=== PATIENT | male | born 1985 | race African-American/Black ===

== ENCOUNTER 2016-08-03 13:03 | Emergency (ER) | payer OTHER ==
[2016-08-03 13:57] VITALS: BP 119/71
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
--- NOTE | 2016-08-03 15:14 | RAD ---
INDICATION: RIGHT elbow redness and swelling following training. Decreased range of motion. COMPARISON: None. TECHNIQUE: AP, lateral, and oblique views RIGHT elbow. REPORT: Negative for fat pad displacement to indicate effusion. Negative for fracture or malalignment. Soft tissue swelling most marked superficial to the medial epicondyle. IMPRESSION: Extensive medial soft tissue swelling. Correlate with clinical presentation for potential cellulitis or medial epicondylitis.
== END 2016-08-03 15:36 | disposition home or self-care (01) ==
LOC: UCCORT 13:03
DX: M10.9 Gout, unspecified (principal); F17.210 Nicotine dependence, cigarettes, uncomplicated; Z83.49 Family history of other endocrine, nutritional and metabolic diseases
CPT/HCPCS: 99202; G0463

== ENCOUNTER 2016-08-09 11:13 | Emergency (ER) | payer OTHER ==
[2016-08-09 12:22] VITALS: BP 109/63
--- NOTE | 2016-08-09 12:39 | UC ---
Upper Extremity HPI - HPI Summary HPI Summary: 31 yo M is here for re-evaluation of right arm infection/gout. Wants to go back to full duty work. Was seen in UC on 08/03/16 and diagnosed gout/cellulitis and was prescribed cephalexin and indocin and prednisone. Pt has been taking the meds without problem and states the redness and swelling have improved. Pt denies IV drug use. Pt states no fever at home, noted with 100.1 in UC, pulse 121. Pt states the wound did drain fluid on 08/06/16 and pt covered it with gauze and it stopped draining. 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 Pt with hx MRSA - History of Current Complaint Chief Complaint: Jean Claude Stated Complaint: RE CHECK ARM INFECTION Time Seen by Provider: 08/09/16 12:19 Hx Obtained From: Patient Onset/Duration: Gradual Onset, Lasting Days, Still Present Severity Initially: Severe Severity Currently: None Pain Intensity: 0 Pain Scale Used: 0-10 Numeric Location Of Pain: Is Discrete @ - right antecubital area Aggravating Factor(s): Nothing Alleviating Factor(s): Other: - prescription meds Associated Signs And Symptoms: Positive: Swelling, Redness. Negative: Fever, Numbness/Tingling Related History: Occupational Injury, Dominant Hand Right - Risk Factors Non-Orthopedic Risk Factor: Negative DVT Risk Factors: Family Hx of Clotting Disorder - grandmother with DM and cellulitis and clots Septic Arthritis Risk Factor: Negative - Allergies/Home Medications Allergies/Adverse Reactions: Allergies Allergy/AdvReac Type Severity Reaction Status Date / Time No Known Allergies Allergy Verified 08/09/16 12:03 Home Medications: Home Medications Ibuprofen TAB* [Motrin TAB* 600 MG] 600 mg PO ONCE PRN 08/09/16 [History Confirmed 08/09/16] PMH/Surg Hx/FS Hx/Imm Hx Previously Healthy: Yes - Surgical History Surgical History: None - Family History Known Family History: Positive: Diabetes, Blood Disorder - blood clot in GM - Social History Occupation: Employed Full-time Lives: With Family - grandmother Alcohol Use: None Substance Use Type: None Smoking Status (MU): Heavy Every Day Tobacco Smoker Type: Cigarettes Amount Used/How Often: 1 PPD Have You Smoked in the Last Year: Yes Household Exposure Type: Cigarettes Review of Systems Constitutional: Negative Skin: Other - redness, swelling right antecubital Eyes: Negative ENT: Negative Respiratory: Negative Cardiovascular: Negative Gastrointestinal: Negative Genitourinary: Negative Motor: Negative Neurovascular: Negative Musculoskeletal: Negative Neurological: Negative Psychological: Negative All Other Systems Reviewed And Are Negative: Yes Physical Exam Triage Information Reviewed: Yes Appearance: Well-Appearing, No Pain Distress, Well-Nourished Vital Signs: Initial Vital Signs Temp 100.1 F 08/09/16 12:04 Pulse 121 08/09/16 12:04 Resp 16 08/09/16 12:04 BP 109/63 08/09/16 12:04 Pulse Ox 96 08/09/16 12:04 Temp 100.1 noted, pulse 121 noted. Vital Signs Reviewed: Yes Eyes: Positive: Conjunctiva Clear ENT: Positive: Normal ENT inspection Respiratory: Positive: Lungs clear, Normal breath sounds, No respiratory distress Cardiovascular: Positive: RRR, No Murmur, Pulses Normal, Brisk Capillary Refill Musculoskeletal: Positive: Strength Intact, ROM Intact, Other: - mass right antecubital space 10cm x 7 cm with central red, excoriated area that looks like pus that is 3 cm. Neurological: Positive: Alert, Muscle Tone Normal Psychological Exam: Normal Skin: Positive: significant lesion(s) - right antecubital area as described above. Left antecubital area has 0.5cm area redness, induration which pt cannot explain how it is inflamed Upper Extremity Course/Dx - Course Course Of Treatment: discussed with pt. With vital signs show mild temp elevation and pulse increase and appearance of swelling in right antecubital space, concern for clot or abscess. Advised pt to seek further evaluation in ED with advanced imaging. I will give pt a work release for today, to go to ED for evaluation. With fam hx of clots, and personal hx of MRSA needs further eval. Pt continues to deny IV drug use. Trauma to the arm could be consistent with causing a DVT, so injury at work is a plausible cause for DVT that could become superinfected and become an abscess. - Differential Dx/Diagnosis Differential Diagnosis/HQI/PQRI: Other - abscess, DVT, IV drug use Provider Diagnoses: cellulitis vs abscess right arm. tobacco abuse disorder Discharge - Discharge Plan Condition: Stable Disposition: AGAINST MEDICAL ADVICE Discharge Disposition Comment: pt will go by private car to [facility] ED for higher level of care Forms: *Work Release Referrals: Non Staff,Doctor [Primary Care Provider] -
== END 2016-08-09 13:18 | disposition left against medical advice (07) ==
LOC: UCCORT 11:13
DX: L08.9 Local infection of the skin and subcutaneous tissue, unspecified (principal); F17.210 Nicotine dependence, cigarettes, uncomplicated; Z86.14 Personal history of Methicillin resistant Staphylococcus aureus infection
CPT/HCPCS: 99212; G0463

== ENCOUNTER 2016-08-11 10:48 | Emergency (ER) | payer OTHER ==
[2016-08-11 12:16] VITALS: BP 139/75
--- NOTE | 2016-08-11 12:52 | UC ---
Skin Complaint HPI - HPI Summary HPI Summary: 31 yo male presents with request for work note States arm is giving him no problems No longer febrile - History of Current Complaint Chief Complaint: UCGeneralIllness Time Seen by Provider: 08/11/16 12:15 Stated Complaint: RTW NOTE/CLEARANCE Hx Obtained From: Patient Onset/Duration: Gradual Onset, Lasting Weeks Timing: Constant Onset Severity: Severe Current Severity: None Pain Intensity: 0 Pain Scale Used: 0-10 Numeric Location: Other - right antecubital fossa Character: Swelling - resolved, Redness - resolved, Painful - resolved Aggravating: Nothing Alleviating: Nothing Associated Signs & Symptoms: Positive: Negative. Negative: Tenderness - Allergy/Home Medications Allergies/Adverse Reactions: Allergies Allergy/AdvReac Type Severity Reaction Status Date / Time No Known Allergies Allergy Verified 08/11/16 12:16 Review of Systems Constitutional: Negative Skin: Negative Eyes: Negative ENT: Negative Respiratory: Negative Cardiovascular: Negative Gastrointestinal: Negative Genitourinary: Negative Motor: Negative Neurovascular: Negative Musculoskeletal: Negative Neurological: Negative Psychological: Negative All Other Systems Reviewed And Are Negative: Yes PMH/Surg Hx/FS Hx/Imm Hx Previously Healthy: Yes - hx MRSA - Surgical History Surgical History: None - Family History Known Family History: Positive: Unknown, Diabetes, Blood Disorder - blood clot in GM - Social History Alcohol Use: None Substance Use Type: None Smoking Status (MU): Heavy Every Day Tobacco Smoker Type: Cigarettes Amount Used/How Often: 1 PPD Have You Smoked in the Last Year: Yes Household Exposure Type: Cigarettes Physical Exam Triage Information Reviewed: Yes Appearance: Well-Appearing - non toxic/alert/reading, No Pain Distress, Well- Nourished Vital Signs: Initial Vital Signs Temp 99.4 F 08/11/16 12:14 Pulse 105 08/11/16 12:14 Resp 14 08/11/16 12:14 BP 139/75 08/11/16 12:14 Pulse Ox 99 08/11/16 12:14 Vital Signs Reviewed: Yes Eyes: Positive: Conjunctiva Clear ENT: Positive: Hearing grossly normal. Negative: Nasal congestion, Nasal drainage, Trismus, Muffled/hoarse voice Neck: Positive: Supple, Nontender Respiratory: Positive: Lungs clear, Normal breath sounds, No respiratory distress, No accessory muscle use Cardiovascular: Positive: RRR, No Murmur, Pulses Normal. Negative: Tachycardia Abdominal Exam: Normal Neurological Exam: Normal Neurological: Positive: Alert. Negative: Fatigued Psychological Exam: Normal Skin Exam: Other - right anticubital fossa-healing area where an abscess had drained, no pus, no fluctuance small area of induration. range of motion is full , no erthyema Course/Dx - Diagnoses Provider Diagnoses: resolving abscess right antecubital fossa Discharge - Discharge Plan Condition: Stable Disposition: HOME Prescriptions: Sulfamethox/Trimethoprim DS* [Bactrim DS 800/160 TAB*] 1 tab PO BID #14 tab Forms: *Work Release Referrals: Non Staff,Doctor [Primary Care Provider] - Additional Instructions: Your infection is markedly improved You may return to work I suggest another weeks worth of antibiotics Because you have had MRSA in the past I would like to change antibiotic I don't think this was due to gout...I think it was all due to infection
== END 2016-08-11 12:53 | disposition home or self-care (01) ==
LOC: UCCORT 10:48
DX: L02.413 Cutaneous abscess of right upper limb (principal); F17.210 Nicotine dependence, cigarettes, uncomplicated
CPT/HCPCS: 99211; G0463

== ENCOUNTER 2017-11-14 15:54 | Emergency (ER) | payer SELFPAY ==
--- NOTE | 2017-11-14 16:57 | UC ---
Lower Extremity/Ankle HPI - HPI Summary HPI Summary: 32 y/o female presents to the urgent care c/o RT second toe pain s/p dropping a car door on his Rt foot yesterday. Pt states he went home to rest, elevated his foot and applied ice. However this morning he went to work and pain got worse. Pain is 7/10 sharp w/ walking. He took 2 tabs PO of ibuprofen to alleviate symptoms this morning. His Rt toe is red and swollen. Pt denies numbness and tingling sensation over his toe, SOB, chest pain, calf pain, abdominal pain, N/V/D. - History of Current Complaint Chief Complaint: UCLowerExtremity Stated Complaint: R TOE INJURY WC Time Seen by Provider: 11/14/17 16:54 Hx Obtained From: Patient Onset/Duration: Sudden Onset, Lasting Days - 1 day, Still Present, Worse Since - today Severity Initially: Moderate Severity Currently: Moderate Pain Intensity: 7 Pain Scale Used: 0-10 Numeric Aggravating Factor(s): Ambulation Alleviating Factor(s): Rest, Ice, OTC Meds Able to Bear Weight: Yes - Risk Factors Gout Risk Factors: Negative DVT Risk Factors: Negative Septic Arthritis Risk Factor: Negative - Allergies/Home Medications Allergies/Adverse Reactions: Allergies Allergy/AdvReac Type Severity Reaction Status Date / Time No Known Allergies Allergy Verified 11/14/17 16:09 PMH/Surg Hx/FS Hx/Imm Hx Previously Healthy: Yes - Pt denies PMHX - Surgical History Surgical History: None - Family History Known Family History: Positive: Diabetes, Blood Disorder - blood clot in GM - Social History Occupation: Employed Full-time Lives: With Family Alcohol Use: None Substance Use Type: Marijuana Smoking Status (MU): Former Smoker Type: Cigarettes Amount Used/How Often: 1 PPD Have You Smoked in the Last Year: Yes Household Exposure Type: Cigarettes Review of Systems Constitutional: Negative Skin: Bruising - 2nd Rt toe w/ swelling Eyes: Negative ENT: Negative Respiratory: Negative Cardiovascular: Negative Gastrointestinal: Negative Genitourinary: Negative Motor: Negative Neurovascular: Negative Musculoskeletal: Decreased ROM - RT second toe s/p injury, Other: - RT second toe pain s/p injury Neurological: Negative Psychological: Negative Is Patient Immunocompromised?: No All Other Systems Reviewed And Are Negative: Yes Physical Exam - Summary Physical Exam Summary: Vital Signs Reviewed: Yes General : well developed, well nourished male w/o any apparent distress Eyes: Positive: Conjunctiva Clear - PERRLA, EOMI ENT: Positive: Normal ENT inspection, Hearing grossly normal, Pharynx normal, TMs normal Neck: Positive: Supple, Nontender, No Lymphadenopathy Respiratory: Positive: Chest non-tender, Lungs clear, Normal breath sounds, No respiratory distress Cardiovascular: Positive: RRR, No Murmur, Pulses Normal Abdomen Description: Positive: Nontender, No Organomegaly, Soft. Negative: CVA Tenderness (R), CVA Tenderness (L) Bowel Sounds: Positive: Present Musculoskeletal: Positive: Strength Intact, ROM Intact, No Edema, RT Foot/Toes: Pt is able to bear weight but ambulate with mild limping. RT foot :mild brusing and ecchymosis, over the RT second DIPJ w/ mild swelling and tenderness to palaption, No erythema, lesions, ulcers or break in skin integrity. The R foot is without obvious asymmetry or deformity when compared to the L foot. No bony step-off, no tenderness of hindfoot, metatarsals. Decrease plantar/ dorsiflexion due to pain.. Distal motor and neurovascular status are intact.Decreae ROM of second toe due to pain. Neurological Exam: Normal Psychological Exam: Normal Skin Exam: Normal Triage Information Reviewed: Yes Vital Signs: Initial Vital Signs Temp 98.3 F 11/14/17 16:05 Pulse 83 11/14/17 16:05 Resp 18 11/14/17 16:05 BP 119/60 11/14/17 16:05 Pulse Ox 99 11/14/17 16:05 Lower Extremity Course/Dx - Course Course Of Treatment: 32 y/o female presents to the urgent care c/o RT second toe pain s/p dropping a car door on his Rt foot yesterday. Pt states he went home to rest, elevated his foot and applied ice. However this morning he went to work and pain got worse. Pain is 7/10 sharp w/ walking. He took 2 tabs PO of ibuprofen to alleviate symptoms this morning. His Rt toe is red and swollen. Pt denies numbness and tingling sensation over his toe, SOB, chest pain, calf pain, abdominal pain, N/V/D.Hx obtained. RT 2nd toe X-ray ordered, Impression: No evidence of fracuture. Probably toe sprain s/p contusion. Pt's foot immobilized with pio-bandage and given a post-op shoe to avoid flexion. Advised RICE, and Rx Ibuprofen PO for pain, If not improvement of symptoms to f/u with Orthopedic DR referral for further evaluation and treatment. Pt understood and agreed with D/C instructions - Differential Dx/Diagnosis Differential Diagnosis/HQI/PQRI: Contusion, Fracture (Closed), Subungual Hematoma, Sprain, Strain, Tendonitis Provider Diagnoses: 1- RT 2nd toe pain s/p injury. 2- RT 2nd toe contusion Discharge - Sign-Out/Discharge Documenting (check all that apply): Discharge - Discharge Plan Condition: Stable Disposition: HOME Prescriptions: Ibuprofen TAB* [Motrin TAB* 800 MG] 800 mg PO Q6H PRN #20 tab PRN Reason: Pain Patient Education Materials: Foot Contusion (ED), Foot Sprain (ED) Forms: *Work Release Referrals: [facility] [place] [facility] [Outside] - 1 Week Nicole Venegas MD [Medical Doctor] - 1 Week Additional Instructions: 1-Please take medications as directed to alleviate pain and swelling. 2-Please apply ice, keep your foot immobilized with the Pio bandage and avoid flexion w/ the post-up shoe. Avoid strenuous exercise or standing for long periods of time 3- Please f/u with your PCP mof Orthopedic Dr in 1 week if not improvement of symptoms for further evaluation and treatment. - Billing Disposition and Condition Condition: STABLE Disposition: HOME
[2017-11-14] MEDS ORDERED: Ibuprofen TAB* 400 MG PO ONE (17:21)
--- NOTE | 2017-11-14 18:01 | RAD ---
INDICATION: Right second toe injury. TECHNIQUE: 3 views of the right second toe were obtained. FINDINGS: The bones are in normal alignment. No fracture is seen. Joint spaces appear maintained. IMPRESSION: NO EVIDENCE FOR FRACTURE.
[2017-11-14 18:33] VITALS: BP 124/71
== END 2017-11-14 18:25 | disposition home or self-care (01) ==
LOC: UCEAST 15:54
DX: S90.121A Contusion of right lesser toe(s) without damage to nail, initial encounter (principal); W20.8XXA Other cause of strike by thrown, projected or falling object, initial encounter; Y93.89 Activity, other specified; Y92.89 Other specified places as the place of occurrence of the external cause; Y99.0 Civilian activity done for income or pay; Z87.891 Personal history of nicotine dependence
CPT/HCPCS: 99213; A9270-GY; G0463

== ENCOUNTER 2017-12-11 11:41 | Emergency (ER) | payer OTHER ==
[2017-12-11 11:53] VITALS: BP 134/74
[2017-12-11] MEDS ORDERED: Acetaminophen TAB* 325 MG PO ONE (12:09)
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
--- NOTE | 2017-12-11 13:27 | RAD ---
HISTORY: Head injury with loss of consciousness, headache COMPARISONS: None TECHNIQUE: Multiple contiguous axial CT scans were obtained of the head without intravenous contrast. Left middle cranial fossa is incompletely included within the [id number] the current examination. FINDINGS: HEMORRHAGE/INFARCT: There is no hemorrhage or acute infarct. MASSES/SHIFT: There is no mass or shift. EXTRA-AXIAL SPACES: There are no extra-axial fluid collections. SULCI AND VENTRICLES: The sulci and ventricles are normal in size and position for the patient's stated age. CEREBRUM: There are no focal parenchymal abnormalities. BRAINSTEM: There are no focal parenchymal abnormalities. CEREBELLUM: There are no focal parenchymal abnormalities. VESSELS: The vessels are grossly normal. PARANASAL SINUSES: The paranasal sinuses are clear. ORBITS: The orbits are unremarkable. BONES AND SOFT TISSUE: No bone or soft tissue abnormalities are noted. OTHER: None IMPRESSION: NO ACUTE INTRACRANIAL PATHOLOGY.
== END 2017-12-11 13:43 | disposition home or self-care (01) ==
LOC: UCEAST 11:41
DX: S09.90XA Unspecified injury of head, initial encounter (principal); S00.12XA Contusion of left eyelid and periocular area, initial encounter; W22.8XXA Striking against or struck by other objects, initial encounter; Y93.9 Activity, unspecified; Y92.9 Unspecified place or not applicable; R51 Headache; Z87.891 Personal history of nicotine dependence
CPT/HCPCS: 70450; 99212; A9270-GY; G0463